=== PATIENT | male | born 2000 | race Two or more races ===

== ENCOUNTER 2022-04-04 08:40 | Emergency (ER) | payer MEDICAID, OTHER ==
[~2022-04-04] VITALS: Ht 172.7 cm; Wt 122.7 kg
[2022-04-04 09:10] VITALS: BP 146/98
== END 2022-04-04 09:39 | disposition home or self-care (01) ==
LOC: ER 08:40
DX: S70.12XA Contusion of left thigh, initial encounter (principal); S00.83XA Contusion of other part of head, initial encounter; V47.6XXA Car passenger injured in collision with fixed or stationary object in traffic accident, initial encounter; Y93.89 Activity, other specified; Y92.410 Unspecified street and highway as the place of occurrence of the external cause; Y99.8 Other external cause status